=== PATIENT | female | born 1975 | race Caucasian/White ===

== ENCOUNTER 2018-07-24 15:24 | Emergency (ER) | payer BC ==
[~2018-07-24] VITALS: Ht 165.1 cm; Wt 163.3 kg
[2018-07-24 15:33] VITALS: Ht 165.1 cm; Wt 163.3 kg
[2018-07-24 18:48] LABS: BASOPHIL % 0.6 % (0-2)
[2018-07-24 18:49] LABS: PLATELET COUNT 401 x10^3mcL (130-400); RED CELL DISTRIBUTION WIDTH 18.9 % (11.5-14.5)
[2018-07-24 18:57] LABS: CALCIUM 7.8 mg/dL (8.5-10.1); CARBON DIOXIDE 23.1 mmol/L (21-32); CHLORIDE SERUM 105 mmol/L (98-107); CREATININE SERUM 0.9 mg/dL (0.6-1.0); GFR1 > 60 mL/min; GLUCOSE SERUM 163 mg/dL (74-106); SODIUM SERUM 138 mmol/L (136-145)
[2018-07-24 19:03] LABS: AMPHETAMINE QUAL UR NONE DETECTED (See below)
[2018-07-24 19:10] LABS: ALBUMIN 3.5 g/dL (3.4-5.0); ALKALINE PHOSPHATASE 93 U/L (46-116); ALT/SGPT 18 U/L (14-59); AST/SGOT 15 U/L (15-37); BILIRUBIN TOTAL 0.34 mg/dL (0.20-1.00); T4(THYROXINE) 7.1 ug/dL (4.7-13.3); TOTAL PROTEIN, SERUM 7.5 g/dL (6.4-8.2)
[2018-07-24 19:32] LABS: CK-MB < 0.5 ng/mL (0-3.6); CREATINE KINASE 88 U/L (26-192)
[2018-07-24 20:30] VITALS: BP 105/60
== END 2018-07-24 20:30 | disposition home or self-care (01) ==
LOC: EDBD 15:24 → ED 15:24
PROVIDERS: Emergency Medicine
DX: R10.9 Unspecified abdominal pain (principal); F45.8 Other somatoform disorders; D64.9 Anemia, unspecified; E66.01 Morbid (severe) obesity due to excess calories; R11.2 Nausea with vomiting, unspecified
CPT/HCPCS: 36600; 83880; J2405; J3490; J7030; Q0092